=== PATIENT | male | born 1985 ===

== ENCOUNTER 2021-07-25 14:39 | Emergency (ER) | payer MEDICAID, OTHER ==
[~2021-07-25] VITALS: Ht 177.8 cm; Wt 83.9 kg
[2021-07-25 14:53] VITALS: BP 139/90
== END 2021-07-26 01:25 | disposition left against medical advice (07) ==
LOC: ER 14:39
DX: M79.602 Pain in left arm (principal); M79.652 Pain in left thigh; Z53.21 Procedure and treatment not carried out due to patient leaving prior to being seen by health care provider; V43.62XA Car passenger injured in collision with other type car in traffic accident, initial encounter; Y93.89 Activity, other specified; Y92.410 Unspecified street and highway as the place of occurrence of the external cause; Y99.8 Other external cause status
CPT/HCPCS: 73030